=== PATIENT | female | born 1960 | race Caucasian/White ===

== ENCOUNTER 2019-09-18 21:18 | Emergency (ER) | payer OTHER, SELFPAY ==
--- NOTE | ~2019-09-18 | XR_ITS ---
XR chest 2V DATE: 09/18/2019 22:09 INDICATION: Chest pain and pressure, squeezing feeling. Left arm numbness. TECHNIQUE: PA and lateral views COMPARISON: 06/22/2016 2 view chest FINDINGS: Normal heart size. No hilar or mediastinal enlargement. No pulmonary infiltrate or consolid ation, pleural effusion or pulmonary vascular congestion or pneumothorax. Moderate osteopenia. IMPRESSION: No active cardiopulmonary disease Reviewed, dictated and finalized at location A. ER AND FITTER
--- NOTE | ~2019-09-18 | CT_ITS ---
EXAMINATION: CTA chest PE abdomen pel DATE: 09/18/2019 23:26 INDICATION: Tachycardia, hypertension. Right upper quadrant abdominal pain. TECHNIQUE: Computed tomography (CT) of the chest, abdomen, and pelvis was performed with 100 cc Omnip aque 350 intravenous contrast. Automated exposure control and iterative reconstruction technique were employed. Exam dose: 795.49 mGy-cm total exam DLP. COMPARISON: 09/18/2021 view chest 06/22/2016 CT pulmonary / CT abdomen pelvis FINDINGS: CHEST CT: There is diagnostic contrast enhancement of the pulmonary arteries and no evidence of pulmonary embol ism. No thoracic aortic aneurysm or dissection. No hilar or mediastinal mass lesion or lymphadenopathy. Normal heart size. No pericardial or pleural effusion. Emphysematous changes of the lungs. No pulmonary infiltrate or consolidation or suspicious pulmonary mass lesion is identified. No significant new or developing pulmonary mass. ABDOMEN/PELVIS CT: There are multiple gallstones. No gallbladder wall thickening. No hepatic, splenic, pancreatic or adrenal space-occupying mass lesion. There is right upper pole renal scarring. Mild right hydronephrosis. There is atrophy and scarring of the left kidney. There is a left internal urinary stent, proximal pi gtail in the left renal pelvis, the catheter extending into the ileal conduit and out into the ileost raven bag. Resection of the urinary bladder. Resection of the rectum and distal colon. Left lower quadrant colostomy. There is a prominent amount of fecal material in the colon. There is abdominal wall herniation of a loop of nonobstructed nonstra ngulated small bowel at the ileal conduit. Abdominal aortic and bilateral iliac, bilateral renal artery calcifications and calcifications at the origins of the celiac and superior mesenteric arteries. No abdominal aortic aneurysm. No intraperitoneal or retroperitoneal or pelvic mass lesion or adenopathy or ascites. Status post hysterectomy. Severe degenerative disc disease at L5-S1. No suspicious osteolytic or osteoblastic lesions are noted . IMPRESSION: No evidence of pulmonary embolism Emphysema Cholelithiasis Ileal conduit with peristomal nonobstructed small bowel herniation; left urinary stent Left renal atrophy Left colostomy Reviewed, dictated and finalized at Location [facility]. Reviewed, dictated and finalized at location A. TREE FARM WORKER IMPRESSION: No evidence of pulmonary embolism Emphysema Cholelithiasis Ileal conduit with peristomal nonobstructed small bowel herniation; left urinar y stent Left renal atrophy Left colostomy
[2019-09-18 21:22] VITALS: BP 161/82; PULSE 109; RESP 16; TEMP 36.6; O2SAT 98
--- NOTE | 2019-09-18 21:32 | ECG_ITS ---
Measurements Intervals [place] Rate: 109 P: 59 KS: 112 QRS: 49 QRSD: 90 T: 40 QT: 337 QTc: 455 Interpretive Statements SINUS TACHYCARDIA WITH SHORT [place] INTERVAL POSSIBLE LEFT ATRIAL ENLARGEMENT MINIMAL Q WAVES- ANTEROLAT/INF LEADS BASELINE ARTIFACT- I, II, III ABNORMAL ECG Electronically Signed On 09-19-2019 8:09:44 [employer] by Frankie Bolton D.O.
[2019-09-18 21:55] LABS: Basophils Percent Auto 0.4 % (0.2-1.2); Eosinophils Absolute Auto 0.2 K/mm3 (0-0.3); Eosinophils Percent Auto 4.2 % (0-4.4); Hematocrit 35.6 % (37.0-47.0); Hemoglobin 11.4 g/dL (12.0-15.0); Immature Granulocyte Absolute 0.02 K/mm3 (0.00-0.031); Immature Granulocyte Percent A 0.4 % (0-0.5); Lymphocytes Percent Auto 25.2 % (18.3-44.2); Mean Corpuscular Hemoglobin 30.3 pg (26-34); Mean Corpuscular Volume 94.7 fl (80-100); Mean Platelet Volume 8.6 fl (7.4-10.4); Monocytes Absolute Auto 0.5 K/mm3 (0.1-0.6); Monocytes Percent Auto 11.1 % (2.6-8.5); Neutrophils Absolute Auto 2.8 K/mm3 (1.3-6.7); Neutrophils Percent Auto 58.7 % (45.5-73.1); Platelet Count Result 259 k/mm3 (150-375); Red Blood Count 3.76 M/mm3 (4.2-5.4); Red Cell Distribution Width 13.7 % (11.5-14.5); White Blood Count 4.8 K/mm3 (4.5-10.0)
[2019-09-18 22:05] LABS: INR 0.9; Prothrombin Time 12.2 Seconds (11.1-14.7)
[2019-09-18 22:06] LABS: Partial Thromboplastin Time 24.6 SECONDS (22.3-36.8)
[2019-09-18 22:07] LABS: Blood Urea Nitrogen 28 mg/dL (7-17); Calcium 9.2 mg/dL (8.4-10.2); Carbon Dioxide 22 mmol/L (22-30); Chloride 103 mmol/L (98-107); Estimated Glomerular Filt Rate 39; Glucose 115 mg/dL (65-105); Potassium 3.6 mmol/L (3.4-5.0); Sodium 140 mmol/L (137-145)
[2019-09-18] MEDS: ASPIRIN 81 MG CHEWABLE TABLET 324 MG PO (22:13)
--- NOTE | 2019-09-18 22:16 | ED.ARRPALP ---
HPI - Arrhythmia/Palpitations General Chief Complaint: Arrhythmia/Palpitations Stated Complaint: elevated HR HTN Time Seen by Provider: 09/18/19 21:27 Source: patient and RN notes reviewed Mode of arrival: EMS Limitations: no limitations History of Present Illness HPI narrative: A 58 y/o female presents to the ED via EMS with pounding heart palpitations beginning earlier tonight. She states that she had dinner and that roughly 2 hours after she was sitting on the couch watching TV, when she developed pounding heart palpitations. She reports an associated a VALIENTE, lt arm tingling, squeezing upper ABD pain, and nausea beginning at the same time. She notes that she has a hx of blood clots so she is currently on Eliquis. She denies any CP, sweats, back pain, leg swelling, leg pain, fevers, chills, vomiting, or diarrhea. MD complaint: palpitations (pounding) Onset (ago): hour(s) (tonight) Context: occurred during rest Associated symptoms: nausea and other (VALIENTE, lt arm tingling, and squeezing upper ABD pain) Related Data Home Medications Medication Instructions Recorded Confirmed apixaban [Eliquis] 2.5 mg PO BID 07/31/19 07/31/19 Allergies Allergy/AdvReac Type Severity Reaction Status Date / Time codeine Allergy Unknown Unknown Verified 09/18/19 21:31 Review of Systems Review of Systems: Narrative: CONSTITUTIONAL: Denies fever, chills, or sweats. CARDIOVASCULAR: Denies chest pain, edema, or leg pain. Report palpitations. GASTROINTESTINAL: Denies vomiting or diarrhea. Reports nausea and squeezing upper ABD pain. MUSCULOSKELETAL: Denies back pain. NEUROLOGIC: Reports headache and lt arm tingling. All systems reviewed & are unremarkable except as noted in HPI and below PMFSH Past Medical History Medical History (Updated 09/19/19 @ 01:22 by Prerna Moran MD) DVT (deep venous thrombosis) Hx of bladder cancer PE (pulmonary thromboembolism) Surgical History Surgical History (Updated 09/19/19 @ 00:51 by Brayden Correa) Hx of tubal ligation Family History Family History (Updated 02/23/18 @ 14:41 by DOCTOR UNKNOWN) Mother Family history of cardiovascular disease Social History Social History (Updated 09/19/19 @ 00:51 by Brayden Shetty Smoking status: Former smoker Second hand tobacco smoke exposure: Yes Alcohol intake: current Comments PCP: Dr. Berger. Exam Narrative: Exam Narrative: GENERAL: Well-appearing, well-nourished, and in no acute distress. HEAD: Normocephalic, atraumatic. EYES: PERRLA and EOMI. ENT: Nares clear, no rhinorrhea or epistaxis. Mucous membranes moist. NECK: Supple. CHEST: Clear to auscultation. No respiratory distress. No chest wall tenderness. HEART: Tachycardia and regular rhythm. No murmur heard. Normal peripheral pulses. ABDOMEN: Soft, nontender, nondistended, normal active bowel sounds. Colostomy and urostomy over ABD. EXTREMITIES: Normal range of motion. No edema. SKIN: Warm, dry, no rash. NEURO: No focal deficits. Alert and oriented X3. Anxious. Course Course Emergency Course: Patient presented for evaluation of palpitations and chest pain. At the time of initial assessment, symptoms are resolved. Patient without acute ischemic changes on her EKG. Initial troponin is normal. Obtain CTA of the chest to evaluate for PE given patient's history of PE of which she has known. No intra-abdominal pathology that would be causing her symptoms. Patient had no recurrent symptoms in the ER. Her second troponin is also normal. Unknown etiology for the patient's palpitations. Shared decision-making occurred, patient would like to be discharged home. Given 2 normal troponins, she may follow-up with her primary care provider and cardiology on an outpatient basis. Vital Signs Vital signs: Vital Signs Temperature 36.6 C 09/18/19 21:22 Pulse Rate 109 H 09/18/19 21:22 Respiratory Rate 16 09/18/19 21:22 Blood Pressure 161/82 H 09/18/19 21:22 Pulse Oximetry 98 09/18/19 21:22
[2019-09-18 22:19] LABS: Troponin I < 0.012 ng/mL (0.000-0.034)
[2019-09-18 22:32] VITALS: BP 128/81; PULSE 88; RESP 12; O2SAT 98
[2019-09-18] MEDS: SODIUM CHLORIDE 0.9% IV 1,000 ML 999 ML IV CONT (22:37)
[2019-09-18 22:42] LABS: D Dimer 0.47 ug/mL (<0.48)
[2019-09-18 22:47] LABS: Alanine Aminotransferase 18 U/L (4-35); Alkaline Phosphatase 66 U/L (38-126); Aspartate Amino Transferase 21 U/L (14-36); Bilirubin,Total 0.1 mg/dL (0.2-1.3); Lipase 101 U/L (23-300)
[2019-09-19 01:06] LABS: Troponin I < 0.012 ng/mL (0.000-0.034)
[2019-09-19 02:22] VITALS: BP 118/77; PULSE 78; RESP 16; O2SAT 97
== END 2019-09-19 02:05 | disposition home or self-care (01) ==
PROVIDERS: Emergency Provider Emergency Medicine; PCP Internal Medicine
DX: R00.2 Palpitations (principal); Z86.718 Personal history of other venous thrombosis and embolism; Z86.711 Personal history of pulmonary embolism; Z85.51 Personal history of malignant neoplasm of bladder; Z79.01 Long term (current) use of anticoagulants; Z87.891 Personal history of nicotine dependence; J43.9 Emphysema, unspecified; K80.20 Calculus of gallbladder without cholecystitis without obstruction; N26.1 Atrophy of kidney (terminal); Z93.3 Colostomy status
CPT/HCPCS: 36415; 71046; 71275; 74177; 80048; 80076; 83690; 84484; 85025; 85380; 85610; 85730; 93005; 96360; 99284; A9270; J7030; Q9967

== ENCOUNTER 2019-10-01 07:36 | Outpatient (CLI) | payer OTHER, SELFPAY ==
--- NOTE | ~2019-10-01 | XR_ITS ---
XR_CERV2-3V_CR DATE: 10/01/2019 07:58 INDICATION: Neck pain TECHNIQUE: AP, open-mouth, lateral views COMPARISON: None FINDINGS: Normal alignment of the cervical spine with the exception of minimal anterolisthesis at C4- 5. Moderately severe degenerative disc disease at C5-6. There is degenerative change at the facet joints throughout the cervical spine. There is uncovertebra l joint spurring bilaterally at C5-6. No fracture or dislocation or locked facet or prevertebral soft tissue swelling. C1 and C2 are normal ly aligned and the odontoid process is intact. IMPRESSION: Cervical spondylosis Reviewed, dictated and finalized at Location [facility]. Reviewed, dictated and finalized at location B. RITY SPECIALIST IMPRESSION: Cervical spondylosis
== END 2019-10-01 07:37 | disposition home or self-care (01) ==
PROVIDERS: PCP Internal Medicine; Visit Provider Nurse Practitioner
DX: M54.2 Cervicalgia (principal); M47.812 Spondylosis without myelopathy or radiculopathy, cervical region
CPT/HCPCS: 72040

== ENCOUNTER 2019-10-04 08:10 | Outpatient (CLI) | payer OTHER, SELFPAY ==
--- NOTE | ~2019-10-04 | NM_ITS ---
EXAMINATION: NM hepatobiliary wo pharm DATE: 10/04/2019 13:39 INDICATION: Right upper quadrant abdominal pain. COMPARISON: CT abdomen and pelvis 09/18/2019 TECHNIQUE: 5 mCi Tc-99m mebrofenin (Choletec) was administered intravenously. Scintigraphic images o f the abdomen were obtained for one hour. Delayed images were obtained at 4 hours. FINDINGS: There is normal clearance of radiotracer from the blood pool. There is homogeneous tracer u ptake by the liver. Activity progresses to the bowel by 40 minutes. There is activity in the gallbla dder at 4 hours. IMPRESSION: 1. Delayed passage of activity to the gallbladder, which may be seen with gallbladder dysfunction an d/or chronic cholecystitis. Reviewed, dictated and finalized at location A. R SCHOOL TEACHER IMPRESSION: 1. Delayed passage of activity to the gallbladder, which may be seen with gall bladder dysfunction and/or chronic cholecystitis.
== END 2019-10-04 08:11 | disposition home or self-care (01) ==
LOC: ANHIMG 08:14
PROVIDERS: PCP Internal Medicine; Visit Provider Nurse Practitioner
DX: R10.11 Right upper quadrant pain (principal)
CPT/HCPCS: 78226; A9537

== ENCOUNTER 2020-06-09 07:47 | Outpatient (CLI) | payer OTHER, SELFPAY ==
[2020-06-09 08:20] LABS: Add Urine Microscopic? YES; Appearance Urine Turbid (Clear); Bilirubin Urine Negative (Negative); Blood Urine 1+ (Negative); Color Urine Red (Yellow); Glucose Urine UA Negative (Negative); Ketones Urine Negative (Negative); Leukocyte Esterase Ur 3+ LEU/UL (Negative); Nitrate Urine Positive (Negative); Protein Urine 2+ mg/dL (Negative); Specific Grav Ur 1.012 (1.001-1.035); Squamous Epithelial Cell Urine Rare /hpf (Few); Urobilinogen Urine Negative mg/dL (<2.0); WBC Urine 0-3 /hpf
[2020-06-09 08:21] LABS: Basophils Percent Auto 0.6 % (0.2-1.2); Eosinophils Absolute Auto 0.1 K/mm3 (0-0.3); Eosinophils Percent Auto 4.4 % (0-4.4); Hematocrit 40.6 % (37.0-47.0); Hemoglobin 13.3 g/dL (12.0-15.0); Immature Granulocyte Absolute 0.02 K/mm3 (0.00-0.031); Immature Granulocyte Percent A 0.6 % (0-0.5); Lymphocytes Absolute Auto 0.79 K/mm3 (0.9-3.2); Lymphocytes Percent Auto 24.9 % (18.3-44.2); Mean Corpuscular HGB Conc 32.8 g/dl (32-36); Mean Corpuscular Hemoglobin 31.6 pg (26-34); Mean Corpuscular Volume 96.4 fl (80-100); Mean Platelet Volume 8.6 fl (7.4-10.4); Monocytes Absolute Auto 0.4 K/mm3 (0.1-0.6); Monocytes Percent Auto 12.9 % (2.6-8.5); Neutrophils Absolute Auto 1.8 K/mm3 (1.3-6.7); Neutrophils Percent Auto 56.6 % (45.5-73.1); Platelet Count Result 249 k/mm3 (150-375); Red Blood Count 4.21 M/mm3 (4.2-5.4); Red Cell Distribution Width 13.6 % (11.5-14.5); White Blood Count 3.2 K/mm3 (4.5-10.0)
[2020-06-09 08:27] LABS: Alanine Aminotransferase 18 U/L (4-35); Albumin Level 4.4 g/dL (3.5-5.1); Alkaline Phosphatase 84 U/L (38-126); Anion Gap 9 mmol/L (8-16); Aspartate Amino Transferase 20 U/L (14-36); Bilirubin,Total 0.3 mg/dL (0.2-1.3); Blood Urea Nitrogen 27 mg/dL (7-17); Calcium 9.5 mg/dL (8.4-10.2); Carbon Dioxide 23 mmol/L (22-30); Chloride 109 mmol/L (98-107); Cholesterol 266 mg/dL (0-200); Estimated Glomerular Filt Rate 51; Glucose 106 mg/dL (65-105); HDL Direct 52 mg/dL; Potassium 4.3 mmol/L (3.4-5.0); Sodium 141 mmol/L (137-145); Triglycerides 210 mg/dL (<150)
[2020-06-09 08:38] LABS: LDL Cholesterol Direct 168 mg/dL
--- NOTE | 2020-06-09 09:04 | ECHO_ITS ---
Patient Info Name: Maricarmen Nguyen Age: 59 years : 1960 Gender: Female Ht: 65 in Wt: 185 lbs BSA: 1.99 m2 HR: 76 bpm BP: 141 / 80 mmHg Technical Quality: Good Exam Date: 06/09/2020 9:23 AM Exam Location: [facility] Patient Status: Outpatient Admit Date: 06/09/2020 Staff Ordering Physician: Anny Vyas Manager Care: Barbara Swan RDCS Attending Provider: Anny Vyas Referring Physician: Asael BUCHANAN; Exam Type: CA echo doppler color flow Study Info Indications - CHEST PAIN Complete two-dimensional, color flow and Doppler transthoracic echocardiogram is performed. Summary 1. Complete two-dimensional, color flow and Doppler transthoracic echocardiogram is performed. 2. Left ventricular chamber dimension is normal. 3. Left ventricular systolic function is normal, estimated at 65-70%. 4. The left ventricular diastolic function is grade I diastolic dysfunction. 5. E/e' 11 is mildly elevated. 6. Global longitudinal strain is normal at -17.5%. 7. There is trace tricuspid valve regurgitation. 8. No pulmonary hypertension, estimated pulmonary arterial systolic pressure is 30 mmHg. Left Ventricle E/e' 11 is mildly elevated. Global longitudinal strain is normal at -17.5%. Left ventricular chamber dimension is normal. Left ventricular systolic function is normal, estimated at 65-70%. The left ventricular diastolic function is grade I diastolic dysfunction. Right Ventricle Right ventricular chamber dimension is normal. Right ventricular systolic function is normal. Left Atria Left atrial chamber dimension is normal. Right Atria Right atrial chamber dimension is normal. Aortic Valve The aortic valve is not well visualized. There is no aortic valve stenosis. There is no aortic valve regurgitation. Pulmonic Valve There is no pulmonic regurgitation. Mitral Valve There is no mitral valve stenosis. There is no mitral valve regurgitation. Tricuspid Valve There is trace tricuspid valve regurgitation. No pulmonary hypertension, estimated pulmonary arterial systolic pressure is 30 mmHg. Pericardium/Pleural There is no pericardial effusion. Inferior Vena Cava Normal inferior vena cava with >50% collapse upon inspiration consistent with normal right atrial pressure, 5 mmHg. Aorta The aortic root size at the sinus of Valsalva is normal. Left Ventricular Outflow Tract Name Value Normal LVOT 2D LVOT Diameter 2.0 cm LVOT Doppler LVOT Peak Gradient 4 mmHg LVOT Mean Gradient 2 mmHg LVOT VTI 23 cm LVOT VTI/AV VTI Ratio 1.0 LVOT Stroke Volume 73 ml LVOT CO 13.4 l/min LVOT CI 6.7 l/min/m2 Pulmonic Valve Name Value Normal PV Doppler
--- NOTE | 2020-06-09 09:05 | EST_ITS ---
Patient Info Name: Maricarmen Nguyen Age: 59 years : 1960 Gender: Female Ht: 66 in Wt: 180 lbs BSA: 1.97 m2 Exam Date: 06/09/2020 10:45 AM Exam Location: [facility] Patient Status: Outpatient Admit Date: 06/09/2020 Staff Ordering Physician: Anny Vyas Attending Provider: Anny Vyas Exercise Technologist: Lona Voss RDCS Exercise Physician: Frankie Bolton DO Exam Type: CA stress test treadmill w NM Study Info Indications R07.89 - Other chest pain A treadmill exercise stress test was performed. Summary 1. 1. Negative Antonio exercise stress test for ischemic ST changes by ECG criteria. 2. 2. Poor functional capacity, achieving 4 METs of workload. 3. 3. Baseline hypertension with hypertensive response to exercise. 4. 4. Rapid HR response to exercise achieving 85% MPHR in first 1 minute of exercise. 5. 5. Appropriate HR recovery at 1 minute post exercise. 6. 6. No imaging with stress testing. 7. 7. Patient informed of the above results. Protocol: Antonio Stress ECG Details Stage: REST Duration (min): 6 min : 23 sec Speed (mph): 0.0 Grade (%): 0 HR (bpm): 82 SBP (mmHg): 151 DBP (mmHg): 87 METS: --- Stage: REST Duration (min): 11 min : 45 sec Speed (mph): 0.0 Grade (%): 0 HR (bpm): 97 SBP (mmHg): 145 DBP (mmHg): 83 METS: --- Stage: STAGE 1 Duration (min): 1 min : 0 sec Speed (mph): 1.7 Grade (%): 10 HR (bpm): 137 SBP (mmHg): 145 DBP (mmHg): 83 METS: --- Stage: STAGE 1 Duration (min): 2 min : 0 sec Speed (mph): 1.7 Grade (%): 10 HR (bpm): 143 SBP (mmHg): 145 DBP (mmHg): 83 METS: --- Stage: STAGE 1 Duration (min): 3 min : 0 sec Speed (mph): 1.7 Grade (%): 10 HR (bpm): 153 SBP (mmHg): 215 DBP (mmHg): 91 METS: --- Stage: RECOVERY Duration (min): 0 min : 59 sec Speed (mph): 0.0 Grade (%): 0 HR (bpm): 127 SBP (mmHg): 200 DBP (mmHg): 80 METS: --- Stage: RECOVERY Duration (min): 1 min : 59 sec Speed (mph): 0.0 Grade (%): 0 HR (bpm): 109 SBP (mmHg): 200 DBP (mmHg): 80 METS: --- Stage: RECOVERY Duration (min): 2 min : 59 sec Speed (mph): 0.0 Grade (%): 0 HR (bpm): 101 SBP (mmHg): 178 DBP (mmHg): 82 METS: --- Stage: RECOVERY Duration (min): 3 min : 59 sec Speed (mph): 0.0 Grade (%): 0 HR (bpm): 99 SBP (mmHg): 178 DBP (mmHg): 82 METS: --- Stage: RECOVERY Duration (min): 4 min : 59 sec Speed (mph): 0.0 Grade (%): 0 HR (bpm): 93 SBP (mmHg): 161 DBP (mmHg): 82 METS: --- Stage: RECOVERY Duration (min): 5 min : 59 sec Speed (mph): 0.0 Grade (%): 0 HR (bpm): 94 SBP (mmHg): 161 DBP (mmHg): 82 METS: --- Stage: RECOVERY Duration (min): 6 min : 42 sec Speed (mph): 0.0 Grade (%): 0 HR (bpm): 92 SBP (mmHg): 154 DBP (mmHg): 85
== END 2020-06-09 07:48 | disposition home or self-care (01) ==
PROVIDERS: PCP Internal Medicine; Visit Provider Clinical Nurse Specialist
DX: Z13.228 Encounter for screening for other metabolic disorders (principal); N39.0 Urinary tract infection, site not specified; R07.89 Other chest pain
CPT/HCPCS: 36415; 80053; 80061; 81001; 85025; 87086; 87088; 93017; 93306

== ENCOUNTER 2021-05-07 17:26 | Outpatient (CLI) | payer OTHER, SELFPAY ==
[2021-05-07 17:54] LABS: Basophils Percent Auto 0.5 % (0.2-1.2); Eosinophils Absolute Auto 0.2 K/mm3 (0-0.3); Eosinophils Percent Auto 2.7 % (0-4.4); Hematocrit 36.2 % (37.0-47.0); Hemoglobin 12.1 g/dL (12.0-15.0); Immature Granulocyte Absolute 0.05 K/mm3 (0.00-0.031); Immature Granulocyte Percent A 0.9 % (0-0.5); Immature Reticulocyte Fraction 24.8 % (3.0-15.9); Lymphocytes Absolute Auto 1.59 K/mm3 (0.9-3.2); Lymphocytes Percent Auto 29.1 % (18.3-44.2); Mean Corpuscular HGB Conc 33.4 g/dl (32-36); Mean Corpuscular Hemoglobin 31.7 pg (26-34); Mean Corpuscular Volume 94.8 fl (80-100); Mean Platelet Volume 8.6 fl (7.4-10.4); Monocytes Absolute Auto 0.5 K/mm3 (0.1-0.6); Monocytes Percent Auto 8.4 % (2.6-8.5); Neutrophils Absolute Auto 3.2 K/mm3 (1.3-6.7); Neutrophils Percent Auto 58.4 % (45.5-73.1); Platelet Count Result 309 k/mm3 (150-375); Red Blood Count 3.82 M/mm3 (4.2-5.4); Red Cell Distribution Width 13.2 % (11.5-14.5); Reticulocyte Hemoglobin Conten 34.9 pg (28.2-35.7); Reticulocyte Percent 1.73 % (0.7-4.3); Reticulocytes Absolute 0.07 B/L (32.2-175.7); White Blood Count 5.5 K/mm3 (4.5-10.0)
[2021-05-07 18:29] LABS: Anion Gap 11 mmol/L (8-16); Blood Urea Nitrogen 30 mg/dL (7-17); Calcium 9.3 mg/dL (8.4-10.2); Carbon Dioxide 22 mmol/L (22-30); Chloride 107 mmol/L (98-107); Estimated Glomerular Filt Rate 57; Glucose 99 mg/dL (65-110); Potassium 4.5 mmol/L (3.4-5.0); Sodium 140 mmol/L (137-145)
== END 2021-05-07 17:27 | disposition home or self-care (01) ==
LOC: ANHLAB 17:29
PROVIDERS: PCP Internal Medicine
DX: I82.409 Acute embolism and thrombosis of unspecified deep veins of unspecified lower extremity (principal); Z79.01 Long term (current) use of anticoagulants
CPT/HCPCS: 36415; 80048; 85025; 85046

== ENCOUNTER 2021-05-16 08:02 | Outpatient (CLI) | payer OTHER, SELFPAY ==
[2021-05-16 08:46] LABS: Basophils Percent Auto 0.6 % (0.2-1.2); Eosinophils Absolute Auto 0.1 K/mm3 (0-0.3); Eosinophils Percent Auto 4.4 % (0-4.4); Hematocrit 39.5 % (37.0-47.0); Hemoglobin 12.5 g/dL (12.0-15.0); Immature Granulocyte Absolute 0.01 K/mm3 (0.00-0.031); Immature Granulocyte Percent A 0.3 % (0-0.5); Lymphocytes Absolute Auto 0.98 K/mm3 (0.9-3.2); Lymphocytes Percent Auto 30.6 % (18.3-44.2); Mean Corpuscular HGB Conc 31.6 g/dl (32-36); Mean Corpuscular Hemoglobin 31.3 pg (26-34); Mean Corpuscular Volume 98.8 fl (80-100); Mean Platelet Volume 8.8 fl (7.4-10.4); Monocytes Absolute Auto 0.4 K/mm3 (0.1-0.6); Monocytes Percent Auto 13.1 % (2.6-8.5); Neutrophils Absolute Auto 1.6 K/mm3 (1.3-6.7); Platelet Count Result 234 k/mm3 (150-375); Red Cell Distribution Width 13.6 % (11.5-14.5); White Blood Count 3.2 K/mm3 (4.5-10.0)
[2021-05-16 08:56] LABS: Alanine Aminotransferase 21 U/L (4-35); Albumin Level 4.5 g/dL (3.5-5.1); Alkaline Phosphatase 88 U/L (38-126); Anion Gap 8 mmol/L (8-16); Aspartate Amino Transferase 26 U/L (14-36); Bilirubin,Total 0.4 mg/dL (0.2-1.3); Blood Urea Nitrogen 25 mg/dL (7-17); Calcium 9.4 mg/dL (8.4-10.2); Carbon Dioxide 23 mmol/L (22-30); Chloride 109 mmol/L (98-107); Cholesterol 211 mg/dL (0-200); Estimated Glomerular Filt Rate 57; Glucose 104 mg/dL (65-110); HDL Direct 54 mg/dL; Potassium 4.2 mmol/L (3.4-5.0); Sodium 140 mmol/L (137-145); Triglycerides 191 mg/dL (<150)
[2021-05-16 09:08] LABS: LDL Cholesterol Direct 111 mg/dL
== END 2021-05-16 08:03 | disposition home or self-care (01) ==
PROVIDERS: PCP Internal Medicine; Visit Provider Nurse Practitioner
DX: E78.5 Hyperlipidemia, unspecified (principal); Z13.228 Encounter for screening for other metabolic disorders
CPT/HCPCS: 36415; 80053; 80061; 85025

== ENCOUNTER 2021-08-06 14:31 | Outpatient (CLI) | payer OTHER, SELFPAY ==
--- NOTE | ~2021-08-06 | MM_ITS ---
EXAMINATION: MM screening brittany BI w stacey HISTORY: Screening TECHNIQUE: Craniocaudal and mediolateral oblique 3-D tomosynthesis images were obtained and synthetic 2-D images were generated. CAD analysis was submitted and interpreted. COMPARISON: 10/25/2014 BREAST PARENCHYMAL COMPOSITION: There are scattered areas of fibroglandular density. FINDINGS: There is no evidence of suspicious mass, calcification, or architectural distortion to sugg est malignancy in either breast. There has been no suspicious interval change. IMPRESSION: 1. No mammographic evidence of malignancy. 2. Recommend routine screening mammography in one year. BI-RADS Category 1: Negative Reviewed, dictated and finalized at location A. CTOR OF ANESTHESIA SERVICES
--- NOTE | ~2021-08-06 | DEXA_ITS ---
Bone Density Report Name: SHAZIA MELCHOR Age: 60 Sex: Female Ethnicity: White Date of : 1960 Indication: postmenopausal; height loss; cancer; hysterectomy; Referring Provider: Lucia Mckinley Study: Bone densitometry was performed. Exam Date: August 06, 2021 Accession number: [id number] Bone Density: Region BMD T-score Z-score Classification AP Spine (L1-L4) 0.869 -1.6 -0.2 Osteopenia Femoral Neck (Left) 0.737 -1.0 0.3 Normal Total Hip (Left) 0.808 -1.1 -0.1 Osteopenia Total Hip Bilateral Avg 0.804 -1.2 -0.2 Osteopenia Femoral Neck (Right) 0.703 -1.3 0.0 Osteopenia Total Hip (Right) 0.798 -1.2 -0.2 Osteopenia World Health Organization criteria for BMD impression classify patients as: Normal (T-score at or above -1.0), Osteopenia (T-score between -1.0 and -2.5), or Osteoporosis (T-score at or below -2.5). 10-year Fracture Risk(1): Major Osteoporotic Fracture 7.4% Hip Fracture 0.5% Reported Risk Factors: [place] (), Neck BMD=0.703, BMI=30.8 (1) FRAX(R) Version 3.08. Fracture probability calculated for an untreated patient. Fracture probability may be lower if the patient has received treatment. Clinical Information Provided by Patient: Has the following medical conditions: Cancer, Hysterectomy Patient maximum height was 66 Menopause Age: 50 No regular weight bearing exercise Onset of menses at age 11 Number of children 3 Impression: The patient has low bone mass, based on the Total Spine T-score. The patient has an estimated ten-year risk of hip fracture of 0.5% and an estimated ten-year risk of major fracture of 7.4%, based on the WHO FRAX algorithm. Discussion: BONE DENSITY IS LOW AT ONE OR MORE SKELETAL SITES. This patient's lowest T-score is low at one or more skeletal sites. It meets the World Health Organization's (WHO) criteria for ?low bone mass? (T-score between -1.0 and -2.5). The patient's 10-year risk of fracture as calculated by FRAX is less than the threshold where pharmacological therapy is recommended by the National Osteoporosis Foundation (NOF). However, all treatment decisions require clinical judgment and consideration of individual patient factors, including patient preferences, comorbidities, previous drug use, risk factors not captured in the FRAX model (e.g., frailty, falls, vitamin D deficiency, increased bone turnover, interval significant decline in bone density) and possible under or overestimation of fracture risk by FRAX. The patient should follow a healthful lifestyle (good nutrition with adequate calcium and vitamin D, and appropriate weight-bearing exercise). Follow-Up: Consider repeating this study in 2 to 3 years to reassess this patient's status, or sooner if there is some new clinical indication. Reported by: JOYCE on 08/06/2021 3:00:00 PM.
== END 2021-08-06 14:32 | disposition home or self-care (01) ==
LOC: ANHIMG 14:33
PROVIDERS: PCP Internal Medicine; Visit Provider Nurse Practitioner
DX: Z12.31 Encounter for screening mammogram for malignant neoplasm of breast (principal); Z78.0 Asymptomatic menopausal state; M85.89 Other specified disorders of bone density and structure, multiple sites
CPT/HCPCS: 77063; 77067; 77080

== ENCOUNTER 2022-03-13 17:32 | Outpatient (CLI) | payer BC, SELFPAY | END 2022-03-13 17:33 | disposition home or self-care (01) | PROVIDERS: PCP Internal Medicine | DX: R39.9 Unspecified symptoms and signs involving the genitourinary system (principal) | CPT/HCPCS: 87077; 87086; 87186 ==

== ENCOUNTER 2022-05-04 15:45 | Emergency (ER) | payer BC, SELFPAY ==
[2022-05-04 15:53] VITALS: BP 133/86; PULSE 84; RESP 16; TEMP 36.4; O2SAT 99
[2022-05-04 15:55] VITALS: BP 133/86; PULSE 84; RESP 16; TEMP 36.4; O2SAT 99
--- NOTE | 2022-05-04 16:10 | ED.SKABFB ---
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 She has not had this before but has had contact with the [facility] before Related Data Home Medications Medication Instructions Recorded Confirmed apixaban 2.5 mg tablet (Eliquis) 2.5 mg PO BID 07/31/19 05/04/22 ciprofloxacin HCl 500 mg tablet 500 mg PO DAILY 05/04/22 05/04/22 Allergies Allergy/AdvReac Type Severity Reaction Status Date / Time codeine Allergy Unknown Hallucinati Verified 05/04/22 15:54 ng Review of Systems Review of Systems: CONSTITUTIONAL: Denies fever, chills, sweats. EYES: Denies visual changes, redness, discharge. ENT: Denies rhinorrhea, congestion, sore throat, otalgia. CARDIOVASCULAR: Denies chest pain, palpitations, edema. RESPIRATORY: Denies dyspnea, wheezing, cough GASTROINTESTINAL: Denies abdominal pain, nausea, vomiting, diarrhea. GENITOURINARY: Denies dysuria, hematuria, abnormal discharge SKIN: Denies rash or itching. Patient has a cystic looking lesion under her right inner canthus of her eye NEUROLOGIC: Denies numbness, or focal weakness. PSYCHIATRIC: Denies anxiety or depression. [facility] Past Medical History Medical History Abdominal aortic atherosclerosis Chicken pox Decreased renal function DVT (deep venous thrombosis) Elevated serum creatinine History of blood clots History of cancer of urethra History of pulmonary embolism Hx of bladder cancer urothelial cancer- invades vaginal wall Measles Mumps PE (pulmonary thromboembolism) Surgical History Surgical History H/O total hysterectomy 2017 History of biopsy took from bladder, vaginal wall all that is now gone History of colostomy 2017 History of urostomy 2017 Hx of tubal ligation 20+ years ago Family History Family History Mother Family history of cardiovascular disease Heart disease Father History of blood clots Grandparent Cancer Social History Social History Social History: Caffeine 1 soda daily Smoking status: Former smoker Second hand tobacco smoke exposure: Yes Smoking end date: 08/11/12 Alcohol intake: never Substance use: never Additional occupation/education comments: [employer] Gender identity (if verbalized by the patient): Female Comments At time of signature, I agree with nursing past medical, surgical, social and family history. There is no relevant family history pertinent to the presenting complaint. Exam Narrative: GENERAL: This is a well-nourished, well-developed patient, in mild distress. HEAD: normocephalic, atraumatic. EYES: Sclera clear/white. Vision is grossly intact. Cystic looking lesion under right inner canthus of eye, tender to touch after patient tried to open it with a needle last night EARS: External ears normal. Hearing grossly intact. NOSE: External nose normal without nasal discharge, nares without redness, no rhinorrhea. THROAT: Mucous membranes moist, NECK: Neck supple, CARDIOVASCULAR: Regular rate and rhythm without murmurs, gallops, or rubs. RESPIRATORY: Clear to auscultation. Breath sounds equal bilaterally. No wheezes, rales, or rhonchi. GASTROINTESTINAL: Not done SKIN: warm, intact with no suspicious lesions or rash, good texture and turgor. NEURO: awake, alert, and oriented to person, place and time. There were no obvious focal
== END 2022-05-04 16:30 | disposition home or self-care (01) ==
PROVIDERS: Emergency Provider Nurse Practitioner; PCP Internal Medicine
DX: L98.9 Disorder of the skin and subcutaneous tissue, unspecified (principal); Z86.718 Personal history of other venous thrombosis and embolism; Z86.711 Personal history of pulmonary embolism; Z86.2 Personal history of diseases of the blood and blood-forming organs and certain disorders involving the immune mechanism; Z87.891 Personal history of nicotine dependence; Z85.51 Personal history of malignant neoplasm of bladder; Z85.44 Personal history of malignant neoplasm of other female genital organs
CPT/HCPCS: 99213; G0463

== ENCOUNTER 2022-07-15 11:09 | Emergency (ER) | payer BC, SELFPAY ==
[2022-07-15 11:17] VITALS: BP 121/72; PULSE 86; RESP 16; TEMP 36.3; O2SAT 99
--- NOTE | 2022-07-15 11:30 | ED.URI ---
HPI - URI/Sore Throat General Chief Complaint: Upper Respiratory Infection Stated Complaint: Sinus Time Seen by Provider: 07/15/22 11:30 Source: patient, RN notes reviewed and old records reviewed Mode of arrival: ambulatory Limitations: no limitations History of Present Illness HPI Narrative: 61-year-old female presents to the [facility] with complaints of sinus pain, pressure, yellow to green discharge for over 1 week. As taking Tylenol cold and flu. Related Data Home Medications Medication Instructions Recorded Confirmed apixaban 2.5 mg tablet (Eliquis) 2.5 mg PO BID 07/31/19 07/15/22 Allergies Allergy/AdvReac Type Severity Reaction Status Date / Time ciprofloxacin Allergy Unknown Unknown Verified 05/30/22 10:00 codeine Allergy Unknown Hallucinati Verified 05/30/22 09:56 ng Review of Systems Review of Systems: All systems reviewed & are unremarkable except as noted in HPI and below Constitutional: Constitutional: Reports no additional constitutional complaints Eyes: Eyes: Reports no additional eye complaints ENT: Reports as per HPI and Reports nasal congestion Cardiovascular: Cardiovascular: Reports no additional cardiovascular complaints, Denies chest pain and Denies dyspnea Respiratory: Respiratory: Reports no additional respiratory complaints, Denies chest congestion, Denies cough and Denies dyspnea Gastrointestinal: Gastrointestinal: Reports no additional gastrointestinal complaints, Denies abdominal pain, Denies nausea and Denies vomiting Musculoskeletal: Musculoskeletal: Reports no additional musculoskeletal complaints Integumentary/Breasts: Skin/Breast: Reports system reviewed and no additional complaints, except as docu Neurologic: Reports system reviewed and no additional complaints, except as documented Psychiatric: Psychiatric: Reports no additional psychiatric complaints Allergic/Immunologic: Allergic/Immunologic: Reports no additional allergic/immunologic complaints [facility] Past Medical History Medical History Abdominal aortic atherosclerosis Chicken pox Decreased renal function DVT (deep venous thrombosis) Elevated serum creatinine History of blood clots History of cancer of urethra History of pulmonary embolism Hx of bladder cancer urothelial cancer- invades vaginal wall Measles Mumps PE (pulmonary thromboembolism) Surgical History Surgical History H/O total hysterectomy 2017 History of biopsy took from bladder, vaginal wall all that is now gone History of colostomy 2017 History of urostomy 2017 Hx of tubal ligation 20+ years ago Family History Family History Mother Family history of cardiovascular disease Heart disease Father History of blood clots Grandparent Cancer Social History Social History Social History: Caffeine 1 soda daily Smoking status: Former smoker Second hand tobacco smoke exposure: Yes Smoking end date: 08/11/12 Alcohol intake: never Substance use: never Additional occupation/education comments: [employer] Gender identity (if verbalized by the patient): Female Comments At the time of my signature, I reviewed and agree with the nursing past medical, surgical, social, and family history. There is no relevant family history pertinent to the patient complaint. Exam Const: General: cooperative, healthy appearing, comfortable, no acute distress, well developed, alert, average body habitus and well nourished Nutritional Appearance: average body habitus and well nourished Orientation/consciousness: patient oriented x3 Limitations: no limitations HENMT: Head: normal to inspection Ears: hearing grossly normal bilaterally and external ears normal Face/Nose/Sinus: Normal external nose present, Abnormal mucou
== END 2022-07-15 11:43 | disposition home or self-care (01) ==
PROVIDERS: Emergency Provider Nurse Practitioner; PCP Internal Medicine
DX: J32.9 Chronic sinusitis, unspecified (principal); I70.0 Atherosclerosis of aorta; Z87.891 Personal history of nicotine dependence; Z86.718 Personal history of other venous thrombosis and embolism; Z86.2 Personal history of diseases of the blood and blood-forming organs and certain disorders involving the immune mechanism; Z86.711 Personal history of pulmonary embolism; Z85.59 Personal history of malignant neoplasm of other urinary tract organ; Z85.51 Personal history of malignant neoplasm of bladder
CPT/HCPCS: 99213; G0463

== ENCOUNTER → 2022-09-04 10:47 | Outpatient (CLI) | payer BC, SELFPAY ==
--- NOTE | ~2022-09-04 | XR_ITS ---
Cervical Spine: AP, lateral, open-mouth views. Lateral neutral, flexion, and extension positioning wa s performed. Clinical History: Pain Findings: The normal lordotic curve is maintained. No fracture evident. Minimal grade 1 anterolisthes is of C3 over C4 noted. There is mild degenerative disc change at C5-C6. There is mild uncovertebral joint degenerative change at C5-C6. No instability seen on flexion or extension views. Pre-vertebral soft tissues are unremarkable. Impression: Minimal grade 1 anterolisthesis of C3 over C4. No instability evident. Minimal degenerative changes, as above. Reviewed, dictated and finalized at location . ACT ASSEMBLER Impression: Minimal grade 1 anterolisthesis of C3 over C4. No instability evident. Minimal degenerative changes, as above.
--- NOTE | ~2022-09-04 | XR_ITS ---
Thoracic spine: Clinical Indication: Thoracic arthritis AP and lateral views were performed. No fracture is seen. There is normal alignment of the vertebrae. The intervertebral disc spaces appe ar normal. Paravertebral soft tissues appear normal. Impression: No significant abnormalities noted. Reviewed, dictated and finalized at [facility]. UP EDITOR Impression: No significant abnormalities noted.
== END ==
PROVIDERS: PCP Internal Medicine; Visit Provider Nurse Practitioner Family
DX: M46.84 Other specified inflammatory spondylopathies, thoracic region (principal); M50.20 Other cervical disc displacement, unspecified cervical region
CPT/HCPCS: 72050; 72072